=== PATIENT | female | born 1980 | race Caucasian/White ===

== ENCOUNTER 2018-02-23 16:47 | Emergency (ER) | payer BC ==
[2018-02-23] MEDS ORDERED: ONDANSETRON 4 MG/2 ML VIAL ONE ×3 (18:18→20:38)
[2018-02-23] MEDS ORDERED: MORPHINE 4 MG/ML SYR ONE (18:18)
[2018-02-23] MEDS ORDERED: NA CHLORIDE 0.9% 1,000 ML ONE (18:18)
[2018-02-23 18:38] LABS: Absolute Lymphocytes (CBC) 2.8 K/uL (0.7-4.9); Absolute Monocytes 0.6 K/uL (0.1-1.3); Absolute Neutrophil 3.3 K/uL (1.8-8.0); Basophils % 0.5 % (0-1.3); Eosinophils % 3.3 % (0-4.4); Hematocrit 34.9 % (36.0-45.0); Lymphocytes % 40.6 % (15.3-44.8); MCH 24.3 pg (27.0-35.0); MPV 8.6 fL (7.6-11.3); Monocytes % 8.7 % (3.3-12.3); RBC Red Blood Cell Count 4.59 M/uL (3.86-4.86)
[2018-02-23 18:55] LABS: Bicarbonate 24 mEq/L (21-31); Glucose Level 106 mg/dL (65-120); Lipase 47 U/L (22-51); Potassium 3.9 mEq/L (3.6-5.0); Sodium Level 138 mEq/L (135-145)
[2018-02-23 19:02] LABS: ALT/SGPT 15 IU/L (10-60); AST/SGOT 21 IU/L (10-42); Albumin 3.9 g/dL (3.2-5.5); Alkaline Phosphatase 57 IU/L (42-121); Amylase Level 60 U/L (28-100); BUN Blood Urea Nitrogen 17 mg/dL (6-20); Bilirubin Direct < 0.1 mg/dL (0-0.2); Bilirubin Total 0.4 mg/dL (0.3-1.2); Protein, Total 7.2 g/dL (6.0-8.3)
[2018-02-23 19:27] LABS: Urine Bacteria <20 /HPF (<20); Urine Culture Reflex Order NOT NEEDED; Urine Mucus 1+ /HPF (NONE SEEN); Urine RBC <5 /HPF (NONE SEEN)
[2018-02-23 19:33] LABS: Urine Blood NEGATIVE (NEG); Urine Glucose NEGATIVE (NEG); Urine Protein NEGATIVE (NEG); Urine Specific Gravity >1.030 (1.005-1.030); Urine pH 5.5 (5.0-7.0)
[2018-02-23] MEDS ORDERED: Morphine 2 MG/2 ML SYR ONE (20:39)
--- NOTE | 2018-02-23 21:46 | RAD REPORT ---
EXAM DESCRIPTION: CT - Abdomen Pelvis Wo Contrast - 02/23/2018 9:23 pm CLINICAL HISTORY: Abdominal pain epigastric pain x2 days COMPARISON: None TECHNIQUE: Computed axial tomography of the abdomen and pelvis was obtained. IV contrast was not req uested. Oral contrast given All CT scans are performed using dose optimization technique as appropriate and may include automated exposure control or mA/KV adjustment according to patient size. FINDINGS: The evaluation of solid organs, and vessels is limited secondary to the lack of contrast administration. The liver, spleen, pancreas, adrenals and kidneys appear grossly normal. Postsurgical changes involve the stomach The appendix is normal. There is no evidence of diverticulitis. A 3 centimeter hemorrhagic right ovarian cyst is suspected without significant free-fluid. Air is present within the vagina. Often this is not significant. Infection can also result in this ap pearance should be correlated clinically IMPRESSION: 3 centimeter hemorrhagic right ovarian cyst is suspected without significant free-fluid. . Follow-up pelvic ultrasound in a couple of months is recommended to assess stability/resolution
--- NOTE | 2018-02-23 21:55 | ER ---
Nurse's Notes [facility] Name: Valerie Hogan Age: 37 yrs Sex: Female : 1980 Arrival Date: 02/23/2018 Time: 16:51 Bed 20 Private MD: Diagnosis: Unspecified ovarian cysts Presentation: 02/23 17:27 Presenting complaint: Patient states: Epigastric pain for 2 days. Transition of care: aj patient was not received from another setting of care. Onset of symptoms was February 21, 2018. Note Patient reports eating fast food 2 hours [employer] but was unable to finish it. Presents with large soda and 2 small children in tow. Care prior to arrival: None. 17:27 Method Of Arrival: Ambulatory aj 17:27 Acuity: CARMELO 3 aj 18:01 Initial Sepsis Screen: Does the patient meet any 2 criteria? No. Patient's initial tw2 sepsis screen is negative. Does the patient have a suspected source of infection? No. Patient's initial sepsis screen is negative. Triage Assessment: 17:29 General: Appears in no apparent distress. comfortable, Behavior is calm, cooperative, aj appropriate for age. Pain: Complains of pain in epigastric area. Neuro: Level of Consciousness is awake, alert, obeys commands, Oriented to person, place, time, situation, Appropriate for age. Respiratory: Airway is patent Respiratory effort is even, unlabored, Respiratory pattern is regular, symmetrical. GI: Abdomen is flat, non-distended, Reports epigastric pain. Derm: Skin is intact, is healthy with good turgor, Skin is pink, warm \T\ dry. normal. 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 - Social history:: Smoking status: Patient/guardian denies using tobacco. - Family history:: not pertinent. - Hospitalizations: : No recent hospitalization is reported. Screenin:00 Abuse screen: Denies threats or abuse. Nutritional screening: No deficits noted. tw2 Tuberculosis screening: No symptoms or risk factors identified. Fall Risk None identified. Assessment: 17:58 General: Appears in no apparent distress. Behavior is calm, cooperative, appropriate tw2 for age. Pain: Complains of pain in abdomen and epigastric area. Neuro: Level of Consciousness is awake, alert, obeys commands, Oriented to person, place, time, situation. Cardiovascular: Denies chest pain, shortness of breath, Heart tones S1 S2 Capillary refill < 3 seconds. Respiratory: Reports Airway is patent Respiratory effort is even, Respiratory pattern is regular, symmetrical, Breath sounds are clear bilaterally. GI: Bowel sounds present X 4 quads. Abd is soft X 4 quads Reports lower abdominal pain, upper abdominal pain. : No signs and/or symptoms were reported regarding the genitourinary system. EENT: No signs and/or symptoms were reported regarding the EENT system. Derm: Skin is intact, is healthy with good turgor, Skin temperature is warm. Musculoskeletal: Range of motion: intact in all extremities. 18:41 Reassessment: Patient appears in no apparent distress at this time. No changes from tw2 previously documented assessment. Patient and/or family updated on plan of care and expected duration. Pain level reassessed. Patient is alert, oriented x 3, equal unlabored respirations, skin warm/dry/pink. 18:55 Reassessment: Patient appears in no apparent distress at this time. No changes from tw2 previously documented assessment. Patient and/or family updated on plan of care and expected duration. Pain level reassessed. Patient is alert, oriented x 3, equal unlabored respirations, skin warm/dry/pink. 19:12 Reassessment: Patient appears in no apparent distress at this time. No changes from jd3 previously documented assessment. Patient and/or family updated on plan of care and expected duration. Pain level reassessed. Patient is alert, oriented x 3, equal unlabored respirations, skin warm/dry/pink. 19:17 Reassessment: CT notified of pt finishing CT contrast. jd3 20:06 Reassessment: Patient appears in no apparent distress at this time. Patient and/or jd3 family updated on plan of care and expected duration. Pain level reassessed. Patient is alert, oriented x 3, equal unlabored respirations, skin warm/dry/pink. pt resting with eyes closed, even and unlabored respirations no distress noted at this time. 21:58 Reassessment: Patient appears in no apparent distress at this time. Patient and/or jd3 family updated on plan of care and expected duration. Pain level reassessed. Patient is alert, oriented x 3, equal unlabored respirations, skin warm/dry/pink. provider at bedside discussing plan of care. 22:25 Reassessment: Patient appears in no apparent distress at this time. Patient and/or jd3 family updated on plan of care and expected duration. Pain level reassessed. Patient is alert, oriented x 3, equal unlabored respirations, skin warm/dry/pink. pt reported understanding of discharge instructions. even and steady gait upon discharge. Vital Signs: 17:29 BP 107 / 76; Pulse 100; Resp 17; Temp 98.0; Pulse Ox 100% on R/A; Weight 58.97 kg; aj Height 5 ft. 3 in. (160.02 cm); 18:54 BP 90 / 55; Pulse 90; Resp 18; Pulse Ox 99% on R/A; tw2 19:12 BP 101 / 68; Pulse 86; Resp 17 S; Pulse Ox 97% on R/A; jd3 21:57 BP 109 / 52; Pulse 73; Resp 17 S; Pulse Ox 100% on R/A; jd3 17:29 Body Mass Index 23.03 (58.97 kg, 160.02 cm) aj ED Course: 16:51 Patient arrived in ED. rg4 17:00 [facility] White FNP [facility] kav 17:00 Jose Rene MD is Attending Physician. kav 17:29 Triage completed. aj 17:29 Arm band placed on left wrist. Patient placed in waiting room, Patient notified of wait aj time. 17:52 Cady Khan, RN is Primary Nurse. tw2 17:53 Primary Nurse role handed off by Cady Khan RN la1 17:53 Bartolome Mary RN is Primary Nurse. la1 18:00 Bed in low position. Pulse ox on. NIBP on. tw2 18:01 No provider procedures requiring assistance completed. tw2 18:30 Inserted saline lock: 20 gauge in right antecubital area, using aseptic technique. tw2 Blood collected. 18:57 Report given to TERA Corral. tw2 21:[address] via wheelchair. vm2 21:23 Abdomen In Process Unspecified. EDMS 21:23 CT completed. Patient tolerated procedure well. Patient moved back from CT. vm2 22:19 IV discontinued, intact, bleeding controlled, No redness/swelling at site. Pressure jd3 dressing applied. Administered Medications: 18:32 Drug: Zofran 4 mg Route: IVP; Site: right antecubital; tw2 18:55 Follow up: Response: No adverse reaction tw2 18:33 Drug: NS 0.9% 1000 ml Route: IV; Rate: 1 bolus; Site: right antecubital; tw2 22:20 Follow up: Response: No adverse reaction; IV Status: Completed infusion; IV Intake: jd3 1000ml 18:34 Drug: morphine 4 mg Route: IVP; Site: right antecubital; tw2 18:55 Follow up: Response: No adverse reaction; Pain is decreased tw2 20:47 Drug: morphine 4 mg Route: IVP; Site: right antecubital; jd3 22:28 Follow up: Response: No adverse reaction jd3 20:47 Drug: Zofran 4 mg Route: IVP; Site: right antecubital; jd3 22:28 Follow up: Response: No adverse reaction jd3 Intake: 22:20 IV: 1000ml; Total: 1000ml. jd3 Outcome: 21:55 Discharge ordered by . wander 22:18 Discharged to home ambulatory. jd3 22:18 Condition: stable 22:18 Discharge instructions given to patient, Instructed on discharge instructions, follow up and referral plans. medication usage, Demonstrated understanding of instructions, follow-up care, medications, Prescriptions given X 1. 22:27 Patient left the ED. jd3 Signatures: Dispatcher [employer] EDDC Selena Arreola RN Karolyn Lee, REPRODUCER REPRODUCER Bartolome Núñez RN RN Cady Leal RN RN meme2 Tere Hogan Victoria 2 Swapnil Forde RN RN jd3 Corrections: (The following items were deleted from the chart) 20:12 20:06 Reassessment: Patient appears in no apparent distress at this time. Patient jd3 and/or family updated on plan of care and expected duration. Pain level reassessed. Patient is alert, oriented x 3, equal unlabored respirations, skin warm/dry/pink. jd3
--- NOTE | 2018-02-23 21:55 | EDPHYS ---
Physician Documentation [facility] Name: Valerie Hogan Age: 37 yrs Sex: Female : 1980 Arrival Date: 02/23/2018 Time: 16:51 Bed 20 Private MD: ED Physician Jose Rene HPI: 02/23 17:00 This 37 yrs old Female presents to ER via Unassigned with complaints of kav Abdominal Pain. 20:14 The patient presents with abdominal pain umbilical pain. Onset: The symptoms/episode kav began/occurred acutely, just prior to arrival. The symptoms do not radiate. Associated signs and symptoms: Pertinent positives: nausea and vomiting, diarrhea. The symptoms are described as constant, sharp. Modifying factors: The symptoms are alleviated by nothing, the symptoms are aggravated by nothing. Severity of pain: At its worst the pain was a 8 / 10. The patient has not experienced similar symptoms in the past. The patient has not recently seen a physician. pt presents w/ c/o acute onset of umbilical pain. 20:18 pmhx: gastric sleeve. 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 - Social history:: Smoking status: Patient/guardian denies using tobacco. - Family history:: not pertinent. - Hospitalizations: : No recent hospitalization is reported. ROS: 20:16 Constitutional: Negative for fever, chills, and weight loss, Eyes: Negative for injury, kav pain, redness, and discharge, ENT: Negative for injury, pain, and discharge, Neck: Negative for injury, pain, and swelling, Cardiovascular: Negative for chest pain, palpitations, and edema, Respiratory: Negative for shortness of breath, cough, wheezing, and pleuritic chest pain, Back: Negative for injury and pain, : Negative for injury, bleeding, discharge, and swelling, MS/Extremity: Negative for injury and deformity, Skin: Negative for injury, rash, and discoloration, Neuro: Negative for headache, weakness, numbness, tingling, and seizure, Psych: Negative for depression, anxiety, suicide ideation, homicidal ideation, and hallucinations, Allergy/Immunology: Negative for hives, rash, and allergies, Endocrine: Negative for neck swelling, polydipsia, polyuria, polyphagia, and marked weight changes, Hematologic/Lymphatic: Negative for swollen nodes, abnormal bleeding, and unusual bruising. 20:16 Abdomen/GI: Positive for abdominal pain, nausea, vomiting, and diarrhea. Exam: 20:16 Constitutional: This is a well developed, well nourished patient who is awake, alert, kav and in no acute distress. Head/Face: Normocephalic, atraumatic. Eyes: Pupils equal round and reactive to light, extra-ocular motions intact. Lids and lashes normal. Conjunctiva and sclera are non-icteric and not injected. Cornea within normal limits. Periorbital areas with no swelling, redness, or edema. ENT: Nares patent. No nasal discharge, no septal abnormalities noted. Tympanic membranes are normal and external auditory canals are clear. Oropharynx with no redness, swelling, or masses, exudates, or evidence of obstruction, uvula midline. Mucous membranes moist. Neck: Trachea midline, no thyromegaly or masses palpated, and no cervical lymphadenopathy. Supple, full range of motion without nuchal rigidity, or vertebral point tenderness. No Meningismus. Chest/axilla: Normal chest wall appearance and motion. Nontender with no deformity. No lesions are appreciated. Cardiovascular: Regular rate and rhythm with a normal S1 and S2. No gallops, murmurs, or rubs. Normal PMI, no JVD. No pulse deficits. Respiratory: Lungs have equal breath sounds bilaterally, clear to auscultation and percussion. No rales, rhonchi or wheezes noted. No increased work of breathing, no retractions or nasal flaring. Back: No spinal tenderness. No costovertebral tenderness. Full range of motion. Skin: Warm, dry with normal turgor. Normal color with no rashes, no lesions, and no evidence of cellulitis. MS/ Extremity: Pulses equal, no cyanosis. Neurovascular intact. Full, normal range of motion. Neuro: Awake and alert, GCS 15, oriented to person, place, time, and situation. Cranial nerves II-XII grossly intact. Motor strength 5/5 in all extremities. Sensory grossly intact. Cerebellar exam normal. Normal gait. Psych: Awake, alert, with orientation to person, place and time. Behavior, mood, and affect are within normal limits. 20:16 Abdomen/GI: Inspection: abdomen appears normal, Bowel sounds: normal, Palpation: moderate abdominal tenderness, in the umbilical area. Vital Signs: 17:29 BP 107 / 76; Pulse 100; Resp 17; Temp 98.0; Pulse Ox 100% on R/A; Weight 58.97 kg; aj Height 5 ft. 3 in. (160.02 cm); 18:54 BP 90 / 55; Pulse 90; Resp 18; Pulse Ox 99% on R/A; tw2 19:12 BP 101 / 68; Pulse 86; Resp 17 S; Pulse Ox 97% on R/A; jd3 21:57 BP 109 / 52; Pulse 73; Resp 17 S; Pulse Ox 100% on R/A; jd3 17:29 Body Mass Index 23.03 (58.97 kg, 160.02 cm) aj MDM: 17:53 Medical screening is not applicable. 02/23 18:14 Order name: Amylase, Serum; Complete Time: 20:40 02/23 20:40 Interpretation: Within normal limits. 02/23 18:14 Order name: Basic Metabolic Panel; Complete Time: 20:40 02/23 20:40 Interpretation: Within normal limits. 02/23 18:14 Order name: CBC with Diff; Complete Time: 20:40 02/23 20:40 Interpretation: Abnormal: HGB 11.2; HCT 34.9; MCV 76.0; MCH 24.3. 02/23 18:14 Order name: Creatinine for Radiology; Complete Time: 20:40 02/23 20:40 Interpretation: Within normal limits. 02/23 18:14 Order name: Hepatic Function; Complete Time: 20:40 02/23 20:40 Interpretation: Within normal limits. 02/23 18:14 Order name: Lipase; Complete Time: 20:40 02/23 20:40 Interpretation: Within normal limits. 02/23 18:14 Order name: Urine Microscopic Only; Complete Time: 20:40 [facility] 02/23 20:40 Interpretation: Abnormal: SQEPI 5-10. 02/23 19:03 Order name: Urine Dipstick--Ancillary (enter results) em1 02/23 19:03 Order name: Urine --Ancillary (enter results) [facility] 02/23 19:04 Order name: Urine Dipstick-Ancillary; Complete Time: 20:41 EDMS 02/23 20:41 Interpretation: Within normal limits. [facility] 02/23 19:04 Order name: Urine --Ancillary; Complete Time: 20:39 EDMS 02/23 20:40 Interpretation: Abnormal: USPGR >1.030. [facility] 02/23 21:15 Order name: Abdomen ; Complete Time: 21:53 EDMS 02/23 21:54 Interpretation: Abnormal. [facility] 02/23 18:14 Order name: IV Saline Lock; Complete Time: 18:34 [facility] 02/23 18:14 Order name: Labs collected and sent; Complete Time: 18:34 [facility] 02/23 18:14 Order name: Urine Dipstick-Ancillary (obtain specimen); Complete Time: 18:57 kav Administered Medications: 18:32 Drug: Zofran 4 mg Route: IVP; Site: right antecubital; tw2 18:55 Follow up: Response: No adverse reaction tw2 18:33 Drug: NS 0.9% 1000 ml Route: IV; Rate: 1 bolus; Site: right antecubital; tw2 22:20 Follow up: Response: No adverse reaction; IV Status: Completed infusion; IV Intake: jd3 1000ml 18:34 Drug: morphine 4 mg Route: IVP; Site: right antecubital; tw2 18:55 Follow up: Response: No adverse reaction; Pain is decreased tw2 20:47 Drug: morphine 4 mg Route: IVP; Site: right antecubital; jd3 22:28 Follow up: Response: No adverse reaction jd3 20:47 Drug: Zofran 4 mg Route: IVP; Site: right antecubital; jd3 22:28 Follow up: Response: No adverse reaction jd3 Disposition: 02/23/18 21:55 Discharged to Home. Impression: Unspecified ovarian cysts. - Condition is Stable. - Discharge Instructions: Ovarian Cyst, [id number]. - Prescriptions for Ibuprofen 800 mg Oral Tablet - take 1 tablet by ORAL route every 12 hours As needed take with food; 20 tablet. - Medication Reconciliation Form, Thank You Letter, Antibiotic Education, Prescription Opioid Use, Family Work Release form. - Follow up: Private Physician; When: 5 - 6 days; Reason: Recheck today's complaints, Continuance of care, Re-evaluation by your physician. - Problem is new. - Symptoms have improved. Addendum: 02/24/2018 22:27 Co-signature as Attending Physician, Jose Rene MD I agree with the assessment and k dr plan of care. Signatures: Dispatcher [employer] [facility] Selena Arreola, RN RN Jose Eason MD MD kdr Karolyn White, SILVERER SILVERER Cady Stratton RN RN tw2 Swapnil Forde RN RN jd3 Corrections: (The following items were deleted from the chart) 02/23 21:12 18:17 Abdomen Pelvis W Con+CT.RAD.BRZ ordered. [facility] EDVA 21:15 21:12 Abdomen Wo Contrast ordered. [facility] EDVA 22:27 21:55 02/23/2018 21:55 Discharged to Home. Impression: Unspecified ovarian cysts. jd3 Condition is Stable. Forms are Medication Reconciliation Form, Thank You Letter, Antibiotic Education, Prescription Opioid Use. Follow up: Private Physician; When: 5 - 6 days; Reason: Recheck today's complaints, Continuance of care, Re-evaluation by your physician. Problem is new. Symptoms have improved. kav
== END 2018-02-23 22:27 | disposition home or self-care (01) ==
LOC: ER 16:47
DX: N83.209 Unspecified ovarian cyst, unspecified side (principal)
CPT/HCPCS: 36415; 74176; 80048; 80076; 81003; 81015; 81025; 82150; 83690; 85025; 96361; 96374; 96375; 99284; J2270; J2405; J7030